=== PATIENT | female | born 1955 | race Caucasian/White ===

== ENCOUNTER → 2020-09-13 | Outpatient (CLI) | payer OTHER ==
[~2020-09-13] MED LIST: ATORVASTATIN CA40 MG PO; BETAPACE80 MG PO; CORDARONE 200M200 MG PO; COUMADIN3 MG PO; ECOTRIN81 MG PO; GLUCOPHAGE XR500 MG PO; K-DUR TAB 10 M10 MEQ PO; LANOXIN250 MCG PO; LASIX20 MG PO; LOPRESSOR 25 MG25 MG PO; OMEPRAZOLE20 M1 PO; SYNTHROID25 MCG PO; VITAMIN B-6100 MG PO; VITAMIN D31000 UNI1 PO; VITAMIN E100 UNI2 PO
== END ==
LOC: HEART 5 10:00
DX: I25.10 Atherosclerotic heart disease of native coronary artery without angina pectoris (principal); I48.0 Paroxysmal atrial fibrillation
CPT/HCPCS: 93306

== ENCOUNTER → 2021-06-26 | Outpatient (CLI) | payer OTHER | LOC: HEART 5 09:06 | DX: I48.19 Other persistent atrial fibrillation (principal); I27.20 Pulmonary hypertension, unspecified; I07.1 Rheumatic tricuspid insufficiency; I70.0 Atherosclerosis of aorta | CPT/HCPCS: 93306 ==

== ENCOUNTER → 2021-07-11 | Outpatient (CLI) | payer OTHER ==
[~2021-07-11] MED LIST changes: +ALLOPURINOL100 MG PO; +AMIODARONE HCL200 MG PO; -CORDARONE 200M200 MG PO; +DIAZEPAM2 MG PO; +ELIQUIS5 MG PO; +MULTI-VITAMIN1 EACH PO; -SYNTHROID25 MCG PO; +SYNTHROID75 MCG PO
== END | disposition home or self-care (01) ==
LOC: CATH 07:30
DX: I48.19 Other persistent atrial fibrillation (principal); I25.10 Atherosclerotic heart disease of native coronary artery without angina pectoris; I10 Essential (primary) hypertension; E78.5 Hyperlipidemia, unspecified; E03.9 Hypothyroidism, unspecified; E11.9 Type 2 diabetes mellitus without complications; Z95.1 Presence of aortocoronary bypass graft; K21.9 Gastro-esophageal reflux disease without esophagitis; Z87.891 Personal history of nicotine dependence; Z79.82 Long term (current) use of aspirin; Z79.01 Long term (current) use of anticoagulants; Z79.84 Long term (current) use of oral hypoglycemic drugs; Z79.899 Other long term (current) drug therapy; Z88.8 Allergy status to other drugs, medicaments and biological substances; Z72.89 Other problems related to lifestyle; Z82.49 Family history of ischemic heart disease and other diseases of the circulatory system
CPT/HCPCS: 92960; 93005; J1200; J1742; J2250; J2310; J3010; J7040; J7120

== ENCOUNTER → 2021-08-06 | Outpatient (CLI) | payer OTHER | LOC: HEART 5 14:30 | DX: I48.91 Unspecified atrial fibrillation (principal); R06.00 Dyspnea, unspecified; R53.83 Other fatigue ==

== ENCOUNTER → 2021-09-03 | Outpatient (CLI) | payer OTHER | LOC: HEART 5 12:24 | DX: Z79.899 Other long term (current) drug therapy (principal) | CPT/HCPCS: 94010; 94729 ==